=== PATIENT | female | born 1980 | race Caucasian/White ===

== ENCOUNTER 2016-11-17 11:42 | Outpatient (CLI) | payer BC ==
[2016-11-17] VITALS (7 sets, daily range): BP systolic 141–157; BP diastolic 84–105
[2016-11-17 12:21] LABS: EOSINOPHIL (%) 1.1 % (0-5); EOSINOPHIL COUNT 0.1 K/uL (0-0.3); HEMATOCRIT 28.4 % (36.0-46.0); IMMATURE GRANULOCYTE COUNT 0.1 K/uL; INSTRUMENT ABS NEUTROPHIL CT 10.1 K/uL; LYMPHOCYTE COUNT 1.7 K/uL (1.0-2.8); MCH 30.2 PG (29.0-34.0); MCHC 32.4 G/DL (30.0-36.0); MCV 93.1 FL (83-99); MEAN PLAT.VOLUME 10.7 uM^3 (9.5-12.4); MONOCYTE (%) 6.1 % (3-12); MONOCYTE COUNT 0.8 K/uL (0-0.8); NEUTROPHIL (%) 78.7 % (45-76); NEUTROPHIL COUNT 10.1 K/uL (1.8-6.4); PLATELET COUNT 281 K/uL (156-360); RBC DIS.WIDTH-CV 13.2 % (11.8-14.6); RBC DIS.WIDTH-SD 44.8 % (39-53); RED BLOOD COUNT 3.05 M/uL (3.80-5.20); WHITE BLOOD COUNT 12.8 K/uL (4.1-10.2)
[2016-11-17 12:58] LABS: ALKALINE PHOSPHATASE 82 IU/L (3-129); ANION GAP 7 MEQ/L (2-14); CHLORIDE 105 MEQ/L (99-109); GFR ESTIMATE (CALCULATED) > 59 mL/min/; GLUCOSE 90 mg/dL (70-99); SAMPLE HEMOLYSIS CHECK 0; SAMPLE ICTERIC CHECK 0; SAMPLE LIPEMIA CHECK 0; SODIUM 138 MEQ/L (136-147); TOTAL BILIRUBIN 0.3 MG/DL (0.0-1.0); UREA NITROGEN (BUN) 6 mg/dL (9-23)
== END 2016-11-17 13:40 | disposition home or self-care (01) ==
LOC: LDRP-OP 11:42 → 2WEST 11:43 → LDRP-OP 01-29 11:20
PROVIDERS: Nurse Practitioner
DX: O13.3 Gestational [pregnancy-induced] hypertension without significant proteinuria, third trimester (principal); Z3A.33 33 weeks gestation of pregnancy
CPT/HCPCS: 59025; 80053; 82570; 84156; 85025; G0378

== ENCOUNTER 2016-11-19 16:05 | Outpatient (CLI) | payer BC ==
[~2016-11-19] VITALS: Ht 170.2 cm; Wt 104.0 kg
[2016-11-19] VITALS (9 sets, daily range): BP systolic 140–165; BP diastolic 89–103
[2016-11-19] MEDS ORDERED: SYNTHROID50 MCG PO (16:46)
[2016-11-19] MEDS ORDERED: ZANTAC300 MG PO (16:48)
[2016-11-19] MEDS ORDERED: ZYRTEC10 M2 PO (16:48)
[2016-11-19] MEDS ORDERED: ADVAIR 500/501 DISK IH (16:48)
[2016-11-19] MEDS ORDERED: SINGULAIR10 MG PO (16:48)
[2016-11-19] MEDS ORDERED: RIBOFLAVIN400 MG PO (16:49)
[2016-11-19] MEDS ORDERED: FA-80.8 MG PO (16:50)
[2016-11-19] MEDS ORDERED: MAGNESIUM400 M1 PO (16:50)
[2016-11-19] MEDS ORDERED: NAC600 MG PO (16:51)
[2016-11-19 17:32] LABS: ADD MIUA? YES; BILIRUBIN NEGATIVE; BLOOD NEGATIVE; COLOR YELLOW ((YELLOW)); GLUCOSE (STRIP) NEGATIVE; KETONES 5; LEUKOCYTES NEGATIVE; NITRITE NEGATIVE; PROTEIN (STRIP) NEGATIVE; SPECIFIC GRAVITY 1.009 (1.000-1.030); UROBILINOGEN 0.2 MG/DL (0.2-1.0)
[2016-11-19 17:37] LABS: BACTERIA RARE /HPF; EPITHELIAL CELLS 2+ /HPF; MUCUS TRACE /LPF; RED BLOOD CELLS 0-5 /HPF (0-5); WHITE BLOOD CELLS 0-5 /HPF (0-5)
[2016-11-19 17:38] LABS: EOSINOPHIL (%) 0.8 % (0-5); EOSINOPHIL COUNT 0.1 K/uL (0-0.3); IMMATURE GRANULOCYTE (%) 0.8 % (0.0-0.7); IMMATURE GRANULOCYTE COUNT 0.1 K/uL; INSTRUMENT ABS NEUTROPHIL CT 11.3 K/uL; LYMPHOCYTE COUNT 1.6 K/uL (1.0-2.8); MCH 29.4 PG (29.0-34.0); MCHC 31.8 G/DL (30.0-36.0); MCV 92.4 FL (83-99); MEAN PLAT.VOLUME 10.8 uM^3 (9.5-12.4); MONOCYTE (%) 6.4 % (3-12); MONOCYTE COUNT 0.9 K/uL (0-0.8); NEUTROPHIL (%) 80.3 % (45-76); NEUTROPHIL COUNT 11.3 K/uL (1.8-6.4); PLATELET COUNT 293 K/uL (156-360); RBC DIS.WIDTH-CV 13.2 % (11.8-14.6); RED BLOOD COUNT 3.03 M/uL (3.80-5.20); WHITE BLOOD COUNT 14.1 K/uL (4.1-10.2)
[2016-11-19 17:50] LABS: ANION GAP 12 MEQ/L (2-14); CHLORIDE 103 MEQ/L (99-109); POTASSIUM 3.6 MEQ/L (3.7-5.4); SAMPLE HEMOLYSIS CHECK 0; SAMPLE ICTERIC CHECK 0; SAMPLE LIPEMIA CHECK 0; SODIUM 137 MEQ/L (136-147); TOTAL BILIRUBIN 0.3 MG/DL (0.0-1.0)
[2016-11-19 17:56] LABS: ALKALINE PHOSPHATASE 85 IU/L (3-129); GFR ESTIMATE (CALCULATED) > 59 mL/min/; GLUCOSE 80 mg/dL (70-99); UREA NITROGEN (BUN) 8 mg/dL (9-23)
[2016-11-19 18:13] LABS: UR CREATININE CONCENTRATION 56.9 MG/DL
[2016-11-20] MEDS ORDERED: FLEXERIL10 MG PO (18:16)
== END 2016-11-19 20:42 | disposition home or self-care (01) ==
LOC: LDRP-OP 16:05 → 2WEST 16:07 → LDRP-OP 01-29 14:14
PROVIDERS: Obstetrics & Gynecology
DX: O16.3 Unspecified maternal hypertension, third trimester (principal); O99.283 Endocrine, nutritional and metabolic diseases complicating pregnancy, third trimester; Z3A.34 34 weeks gestation of pregnancy; E06.3 Autoimmune thyroiditis
CPT/HCPCS: 59025; 80053; 81003; 81050; 82570; 82575; 84156; 85025; G0378; J0702

== ENCOUNTER 2016-11-20 17:34 | Outpatient (CLI) | payer BC ==
[~2016-11-20] VITALS: Ht 170.2 cm; Wt 108.0 kg
[~2016-11-20 17:34] MED LIST: ADVAIR 500/501 DISK IH; FA-80.8 MG PO; MAGNESIUM400 M1 PO; NAC600 MG PO; RIBOFLAVIN400 MG PO; SINGULAIR10 MG PO; SYNTHROID50 MCG PO; ZANTAC300 MG PO; ZYRTEC10 M2 PO
[2016-11-20 17:56] VITALS: BP 133/90
[2016-11-20] MEDS ORDERED: FLEXERIL10 MG PO (18:16)
[2016-11-20 18:28] VITALS: BP 124/85
== END 2016-11-20 19:25 | disposition home or self-care (01) ==
LOC: LDRP-OP 17:34 → 2WEST 17:35 → LDRP-OP 01-29 21:17
DX: O16.3 Unspecified maternal hypertension, third trimester (principal); Z3A.34 34 weeks gestation of pregnancy; O99.283 Endocrine, nutritional and metabolic diseases complicating pregnancy, third trimester
CPT/HCPCS: 59025; G0378; J0702

== ENCOUNTER 2016-11-22 20:31 | Inpatient (IN) | payer BC ==
[~2016-11-22] VITALS: Ht 170.2 cm; Wt 108.0 kg
[~2016-11-22 20:31] MED LIST changes: +FLEXERIL10 MG PO
[2016-11-22 21:06] VITALS: BP 171/97
[2016-11-22 21:37] VITALS: BP 157/94
[2016-11-22 21:56] LABS: ALKALINE PHOSPHATASE 90 IU/L (3-129); ANION GAP 11 MEQ/L (2-14); CHLORIDE 104 MEQ/L (99-109); GFR ESTIMATE (CALCULATED) > 59 mL/min/; GLUCOSE 82 mg/dL (70-99); POTASSIUM 3.4 MEQ/L (3.7-5.4); SAMPLE HEMOLYSIS CHECK 0; SAMPLE ICTERIC CHECK 0; SAMPLE LIPEMIA CHECK 0; SODIUM 138 MEQ/L (136-147); UREA NITROGEN (BUN) 10 mg/dL (9-23)
[2016-11-22 21:57] LABS: TOTAL BILIRUBIN 0.2 MG/DL (0.0-1.0)
[2016-11-22 22:11] LABS: HEMATOCRIT 26.7 % (36.0-46.0); MCH 30.1 PG (29.0-34.0); MCHC 32.2 G/DL (30.0-36.0); MCV 93.4 FL (83-99); MEAN PLAT.VOLUME 10.6 uM^3 (9.5-12.4); NRBC (%) 1.2 /100 WBC (0-0); PLATELET COUNT 307 K/uL (156-360); RBC DIS.WIDTH-CV 13.5 % (11.8-14.6); RBC DIS.WIDTH-SD 45.2 % (39-53); RED BLOOD COUNT 2.86 M/uL (3.80-5.20); WHITE BLOOD COUNT 17.8 K/uL (4.1-10.2)
[2016-11-22 22:14] LABS: ABS NEUTROPHIL COUNT 14.1; ANISOCYTOSIS 1+; ATYPICAL LYMPHOCYTE 0.9 %; BAND NEUTROPHILS 4.4 % (0-8.0); EOSINOPHIL ABS CT 0.2; EOSINOPHILS 0.9 % (0-5.0); INSTRUMENT ABS NEUTROPHIL CT 12.5 K/uL; MACROCYTES 1+; METAMYELOCYTES 4.5 %; MICROCYTOSIS 1+; MYELOCYTES 3.6 %; NUCLEATED RBC'S 0.9; POLYCHROMASIA 1+
[2016-11-22 22:43] VITALS: BP 157/86
[2016-11-23] VITALS (16 sets, daily range): BP systolic 132–180; BP diastolic 72–94
[2016-11-23 00:26] LABS: DRSB INTERNAL CONTROL PASS; PROBE CHECK PASS; SPECIMEN PROCESSING CONTROL PASS
[2016-11-23 07:30] LABS: HEMATOCRIT 26.3 % (36.0-46.0); MCH 29.3 PG (29.0-34.0); MCHC 31.2 G/DL (30.0-36.0); MCV 93.9 FL (83-99); MEAN PLAT.VOLUME 10.9 uM^3 (9.5-12.4); PLATELET COUNT 261 K/uL (156-360); RBC DIS.WIDTH-CV 13.6 % (11.8-14.6); RBC DIS.WIDTH-SD 46.5 % (39-53); WHITE BLOOD COUNT 14.4 K/uL (4.1-10.2)
[2016-11-23 08:03] LABS: ALKALINE PHOSPHATASE 88 IU/L (3-129); ANION GAP 9 MEQ/L (2-14); CHLORIDE 106 MEQ/L (99-109); GFR ESTIMATE (CALCULATED) > 59 mL/min/; GLUCOSE 87 mg/dL (70-99); LACTATE DEHYDROGENASE 225 IU/L (20-246); SAMPLE HEMOLYSIS CHECK 0; SAMPLE ICTERIC CHECK 0; SAMPLE LIPEMIA CHECK 0; SODIUM 140 MEQ/L (136-147); TOTAL BILIRUBIN 0.2 MG/DL (0.0-1.0); UREA NITROGEN (BUN) 10 mg/dL (9-23)
[2016-11-23 10:53] LABS: ABSOLUTE RETICULOCYTE CT. 0.1 M/uL (0.02-0.08); IMM.RETIC FRACTION 40.5 % (3-19); RETIC HGB EQUIVALENT 27.4 (28-36); RETICULOCYTE COUNT 3.1 % (0.5-1.8)
[2016-11-23 11:25] LABS: FERRITIN 7 NG/ML (10-291)
[2016-11-23 12:10] LABS: ABS NEUTROPHIL COUNT 12.2; BAND NEUTROPHILS 2.7 % (0-8.0); EOSINOPHIL ABS CT 0.3; EOSINOPHILS 1.8 % (0-5.0); LYMPHOCYTES 7.2 % (15.0-45.0); MYELOCYTES 1.8 %; NUCLEATED RBC'S 1.8; PLAT.SUFFICIENCY ADEQUATE
[2016-11-24] VITALS (7 sets, daily range): BP systolic 135–166; BP diastolic 64–96
[2016-11-24 07:07] LABS: HEMATOCRIT 25.4 % (36.0-46.0); MCH 30.1 PG (29.0-34.0); MCHC 32.3 G/DL (30.0-36.0); MCV 93.4 FL (83-99); MEAN PLAT.VOLUME 10.9 uM^3 (9.5-12.4); NRBC (%) 0.7 /100 WBC (0-0); PLATELET COUNT 242 K/uL (156-360); RBC DIS.WIDTH-CV 13.4 % (11.8-14.6); RBC DIS.WIDTH-SD 45.6 % (39-53); RED BLOOD COUNT 2.72 M/uL (3.80-5.20); WHITE BLOOD COUNT 16.5 K/uL (4.1-10.2)
[2016-11-24 07:32] LABS: ALKALINE PHOSPHATASE 83 IU/L (3-129); ANION GAP 7 MEQ/L (2-14); CHLORIDE 105 MEQ/L (99-109); GFR ESTIMATE (CALCULATED) > 59 mL/min/; GLUCOSE 83 mg/dL (70-99); POTASSIUM 3.9 MEQ/L (3.7-5.4); SAMPLE HEMOLYSIS CHECK 0; SAMPLE ICTERIC CHECK 0; SAMPLE LIPEMIA CHECK 0; SODIUM 137 MEQ/L (136-147); TOTAL BILIRUBIN 0.2 MG/DL (0.0-1.0); UREA NITROGEN (BUN) 14 mg/dL (9-23)
[2016-11-24 07:46] LABS: ANISOCYTOSIS 1+; EOSINOPHIL ABS CT 0; INSTRUMENT ABS NEUTROPHIL CT 11.7 K/uL; MACROCYTES 1+; METAMYELOCYTES 0.9 %; MYELOCYTES 1.7 %; NUCLEATED RBC'S 0.9; PLAT.SUFFICIENCY ADEQUATE; POLYCHROMASIA 1+; SEG.NEUTROPHILS 85.1 % (46.0-76.0)
[2016-11-25 03:52] VITALS: BP 135/82
[2016-11-25 07:39] LABS: HEMATOCRIT 27.8 % (36.0-46.0); MCH 29.3 PG (29.0-34.0); MCHC 30.9 G/DL (30.0-36.0); MCV 94.6 FL (83-99); MEAN PLAT.VOLUME 11.3 uM^3 (9.5-12.4); NRBC (%) 0.6 /100 WBC (0-0); PLATELET COUNT 263 K/uL (156-360); RBC DIS.WIDTH-CV 13.6 % (11.8-14.6); RBC DIS.WIDTH-SD 46.3 % (39-53); RED BLOOD COUNT 2.94 M/uL (3.80-5.20); WHITE BLOOD COUNT 17.4 K/uL (4.1-10.2)
[2016-11-25 07:59] LABS: ALKALINE PHOSPHATASE 94 IU/L (3-129); ANION GAP 10 MEQ/L (2-14); CHLORIDE 104 MEQ/L (99-109); GFR ESTIMATE (CALCULATED) > 59 mL/min/; GLUCOSE 86 mg/dL (70-99); POTASSIUM 4.3 MEQ/L (3.7-5.4); SAMPLE HEMOLYSIS CHECK 0; SAMPLE ICTERIC CHECK 0; SAMPLE LIPEMIA CHECK 0; SODIUM 138 MEQ/L (136-147); TOTAL BILIRUBIN 0.2 MG/DL (0.0-1.0); UREA NITROGEN (BUN) 15 mg/dL (9-23)
[2016-11-25 09:33] VITALS: BP 138/84
[2016-11-25 12:35] VITALS: BP 140/83
[2016-11-25 17:23] VITALS: BP 144/87
[2016-11-25 19:05] VITALS: BP 156/88
[2016-11-25 22:26] VITALS: BP 149/84
[2016-11-26 02:58] VITALS: BP 142/83
[2016-11-26 10:28] VITALS: BP 132/81
== END 2016-11-26 10:50 | disposition home or self-care (01) | DRG 781 ==
LOC: LDRP-OP 20:31 → 2WEST 20:34 → LDRP-OP 01-29 19:45
PROVIDERS: Obstetrics & Gynecology
DX: O14.03 Mild to moderate pre-eclampsia, third trimester (principal); O99.113 Other diseases of the blood and blood-forming organs and certain disorders involving the immune mechanism complicating pregnancy, third trimester; D68.52 Prothrombin gene mutation; O99.283 Endocrine, nutritional and metabolic diseases complicating pregnancy, third trimester; E06.3 Autoimmune thyroiditis; O99.513 Diseases of the respiratory system complicating pregnancy, third trimester; J45.909 Unspecified asthma, uncomplicated; O99.613 Diseases of the digestive system complicating pregnancy, third trimester; K21.9 Gastro-esophageal reflux disease without esophagitis; O99.343 Other mental disorders complicating pregnancy, third trimester; F32.9 Major depressive disorder, single episode, unspecified; F41.9 Anxiety disorder, unspecified; O99.013 Anemia complicating pregnancy, third trimester; D50.9 Iron deficiency anemia, unspecified; R79.89 Other specified abnormal findings of blood chemistry; R09.89 Other specified symptoms and signs involving the circulatory and respiratory systems; Z3A.34 34 weeks gestation of pregnancy
CPT/HCPCS: 71020; 76818; 80053; 81240 90; 82728; 83615; 83735; 85007; 85025; 85027; 85045; 87081; 87653; 94640; 94640 76; G0378

== ENCOUNTER 2016-12-08 19:13 | Inpatient (IN) | payer BC ==
[~2016-12-08] VITALS: Ht 170.2 cm; Wt 104.1 kg
[2016-12-08] VITALS (7 sets, daily range): BP systolic 141–178; BP diastolic 83–107
[2016-12-08 20:47] LABS: EOSINOPHIL (%) 1.2 % (0-5); EOSINOPHIL COUNT 0.2 K/uL (0-0.3); HEMATOCRIT 31.7 % (36.0-46.0); IMMATURE GRANULOCYTE (%) 0.8 % (0.0-0.7); IMMATURE GRANULOCYTE COUNT 0.1 K/uL; INSTRUMENT ABS NEUTROPHIL CT 9.9 K/uL; LYMPHOCYTE COUNT 1.8 K/uL (1.0-2.8); MCHC 31.5 G/DL (30.0-36.0); MCV 95.2 FL (83-99); MEAN PLAT.VOLUME 10.6 uM^3 (9.5-12.4); MONOCYTE (%) 5.3 % (3-12); MONOCYTE COUNT 0.7 K/uL (0-0.8); NEUTROPHIL (%) 78.6 % (45-76); NEUTROPHIL COUNT 9.9 K/uL (1.8-6.4); PLATELET COUNT 254 K/uL (156-360); RBC DIS.WIDTH-CV 16.8 % (11.8-14.6); RBC DIS.WIDTH-SD 57.1 % (39-53); RED BLOOD COUNT 3.33 M/uL (3.80-5.20); WHITE BLOOD COUNT 12.6 K/uL (4.1-10.2)
[2016-12-08 20:56] LABS: CHLORIDE 105 mEq/L (99-109); POTASSIUM 4.2 mEq/L (3.7-5.4); SODIUM 139 mEq/L (136-147)
[2016-12-08 20:58] LABS: GLUCOSE 127 mg/dL (70-99)
[2016-12-08 20:59] LABS: ANION GAP 10 MEQ/L (2-14)
[2016-12-08 21:00] LABS: TOTAL BILIRUBIN 0.2 mg/dL (0.0-1.0)
[2016-12-08 21:01] LABS: ALKALINE PHOSPHATASE 105 IU/L (3-129)
[2016-12-08 21:02] LABS: GFR ESTIMATE (CALCULATED) > 59 mL/min/
[2016-12-08 21:03] LABS: UREA NITROGEN (BUN) 12 mg/dL (9-23)
[2016-12-08 22:08] LABS: UR CREATININE CONCENTRATION 112.7 MG/DL
[2016-12-09] VITALS (24 sets, daily range): BP systolic 121–172; BP diastolic 67–98
[2016-12-10] VITALS (21 sets, daily range): BP systolic 127–177; BP diastolic 72–109
[2016-12-10] MEDS ORDERED: LABETALOL HCL100 MG PO (19:02)
[2016-12-10] MEDS ORDERED: IBUPROFEN800 MG PO (19:03)
== END 2016-12-10 19:30 | disposition home or self-care (01) | DRG 775 ==
LOC: LDRP-OP 19:13 → 2WEST 19:14 → LDRP-OP 20:15 → 2WEST 12-10 07:15 → LDRP-OP 01-29 20:05
PROVIDERS: Advanced Practice Midwife
PROC: 3E033VJ Introduction of Other Hormone into Peripheral Vein, Percutaneous Approach (ICD-10-PCS; principal; 2016-12-08)
PROC: 3E0P7GC Introduction of Other Therapeutic Substance into Female Reproductive, Via Natural or Artificial Opening (ICD-10-PCS; principal; 2016-12-08)
PROC: 10907ZC Drainage of Amniotic Fluid, Therapeutic from Products of Conception, Via Natural or Artificial Opening (ICD-10-PCS; 2016-12-09)
PROC: 00HU33Z Insertion of Infusion Device into Spinal Canal, Percutaneous Approach (ICD-10-PCS; 2016-12-10)
PROC: 3E0S3CZ (ICD-10-PCS; 2016-12-10)
PROC: 10E0XZZ Delivery of Products of Conception, External Approach (ICD-10-PCS; 2016-12-10)
PROC: 0HQ9XZZ Repair Perineum Skin, External Approach (ICD-10-PCS; 2016-12-10)
DX: O70.0 First degree perineal laceration during delivery (principal); O99.12 Other diseases of the blood and blood-forming organs and certain disorders involving the immune mechanism complicating childbirth; O99.52 Diseases of the respiratory system complicating childbirth; Z3A.37 37 weeks gestation of pregnancy; Z37.0 Single live birth; O14.04 Mild to moderate pre-eclampsia, complicating childbirth; K21.9 Gastro-esophageal reflux disease without esophagitis; O99.62 Diseases of the digestive system complicating childbirth; J45.909 Unspecified asthma, uncomplicated; E66.9 Obesity, unspecified; O99.214 Obesity complicating childbirth; Z68.30 Body mass index [BMI] 30.0-30.9, adult; O62.2 Other uterine inertia; D68.52 Prothrombin gene mutation; E06.3 Autoimmune thyroiditis; O99.284 Endocrine, nutritional and metabolic diseases complicating childbirth
CPT/HCPCS: 80053; 82570; 84156; 85025; C1755; G0378; J0595; J2405; J2795; J3010; J7120